=== PATIENT | female | born 1950 | race Caucasian/White ===

== ENCOUNTER 2020-09-15 18:32 | Inpatient (IN) ==
[2020-09-15] MEDS: *HR* OxyCODONE Immed Rel 5 MG TABLET PO PRN (23:22)
[2020-09-15] MEDS: Cholestyramine 4 GM POWD.PACK PO SCH (23:22)
[2020-09-15] MEDS: Apixaban 5 MG TABLET PO SCH (23:23)
[2020-09-16] MEDS: Furosemide 40 MG TABLET PO SCH ×2 (09:04→16:46)
[2020-09-16] MEDS: *HR* SitaGLIPtin 25 MG TABLET PO SCH (09:04)
[2020-09-16] MEDS: Metoprolol XL (24 HR) Succ 50 MG TAB.ER.24H PO SCH (09:04)
[2020-09-16] MEDS: Renal Vitamin 1 CAP CAPSULE PO SCH (09:04)
[2020-09-16] MEDS: Aspirin Enteric Coated 81 MG Tablet PO SCH (09:05)
[2020-09-16] MEDS: Apixaban 5 MG TABLET PO SCH ×2 (09:05→20:26)
[2020-09-16] MEDS: Cholestyramine 4 GM POWD.PACK PO SCH ×2 (09:13→18:12)
[2020-09-16] MEDS: *HR* OxyCODONE Immed Rel 5 MG TABLET PO PRN (11:49)
[2020-09-16] MEDS ORDERED: *HR* Dextrose 50 % in Water (Vial) 50 ML VIAL IVP PRN (12:17)
[2020-09-16] MEDS ORDERED: Dextrose Gel 15 GM/37.5 ML TUBE PO PRN ×2 (12:17)
[2020-09-16] MEDS ORDERED: D5% in Water 1,000 ML IVC PRN (12:17)
[2020-09-16] MEDS: Ondansetron ODT 4 MG TAB.RAPDIS PO PRN (12:49)
[2020-09-16] MEDS: Insulin LISPRO 300 UNITS/3 ML VIAL SUBQ SCH ×2 (16:40→20:18)
[2020-09-16] MEDS: *HR* OxyCODONE/APAP 7.5/325 TABLET PO PRN (16:45)
[2020-09-16] MEDS: Gabapentin 100 MG CAPSULE PO SCH (20:26)
[2020-09-17] MEDS: Cholestyramine 4 GM POWD.PACK PO SCH ×2 (05:58→18:05)
[2020-09-17] MEDS: *HR* OxyCODONE/APAP 7.5/325 TABLET PO PRN ×2 (07:25→21:37)
[2020-09-17] MEDS: Ondansetron ODT 4 MG TAB.RAPDIS PO PRN ×2 (07:26→17:03)
[2020-09-17] MEDS: Insulin LISPRO 300 UNITS/3 ML VIAL SUBQ SCH ×4 (07:45→21:32)
[2020-09-17 08:00] LABS: Hematocrit 26.6 % (35.3-44.9); Hemoglobin 8.3 g/dL (11.5-15.4); Mean Corpuscular HGB Conc 31.2 g/dL (31.6-35.5); Mean Corpuscular Hemoglobin 31.3 pg (28.0-33.3); Mean Corpuscular Volume 100.4 fL (83.0-100.0); Mean Platelet Volume 10.4 fL (9.4-12.4); Platelet Count 229 K/mcL (140-400); Red Blood Count 2.65 M/mcL (3.82-4.97); Red Cell Distribution Width 13.9 % (11.5-14.5); White Blood Count 8.1 K/mcL (4.3-11.1)
[2020-09-17 08:13] LABS: Calcium 8.7 mg/dL (8.6-10.3); Potassium 4.1 mEq/L (3.5-5.1)
[2020-09-17] MEDS: Gabapentin 100 MG CAPSULE PO SCH ×3 (10:18→21:31)
[2020-09-17] MEDS: Renal Vitamin 1 CAP CAPSULE PO SCH (13:43)
[2020-09-17] MEDS: Aspirin Enteric Coated 81 MG Tablet PO SCH (13:44)
[2020-09-17] MEDS: Apixaban 5 MG TABLET PO SCH ×2 (13:45→21:31)
[2020-09-17] MEDS: Furosemide 40 MG TABLET PO SCH ×2 (13:46→16:55)
[2020-09-17] MEDS: Metoprolol XL (24 HR) Succ 50 MG TAB.ER.24H PO SCH (13:51)
[2020-09-17] MEDS: Ergocalciferol (VIT D2) 50,000 UNIT (1.25MG) CAP PO SCH (13:59)
[2020-09-17] MEDS: *HR* SitaGLIPtin 25 MG TABLET PO SCH (14:16)
[2020-09-17] MEDS ORDERED: *HR* Promethazine 25 MG/ML VIAL IM ONE (20:36)
[2020-09-18] MEDS: Cholestyramine 4 GM POWD.PACK PO SCH ×2 (05:52→17:36)
[2020-09-18] MEDS: Metoprolol XL (24 HR) Succ 50 MG TAB.ER.24H PO SCH (10:08)
[2020-09-18] MEDS: Furosemide 40 MG TABLET PO SCH ×2 (10:08→17:35)
[2020-09-18] MEDS: Gabapentin 100 MG CAPSULE PO SCH ×3 (10:08→21:09)
[2020-09-18] MEDS: Renal Vitamin 1 CAP CAPSULE PO SCH (10:08)
[2020-09-18] MEDS: *HR* SitaGLIPtin 25 MG TABLET PO SCH (10:08)
[2020-09-18] MEDS: Insulin LISPRO 300 UNITS/3 ML VIAL SUBQ SCH ×4 (10:09→21:09)
[2020-09-18] MEDS: Aspirin Enteric Coated 81 MG Tablet PO SCH (10:09)
[2020-09-18] MEDS: Apixaban 5 MG TABLET PO SCH ×2 (10:09→21:09)
[2020-09-18] MEDS: *HR* OxyCODONE/APAP 7.5/325 TABLET PO PRN ×2 (10:12→17:35)
[2020-09-18] MEDS: Ondansetron ODT 4 MG TAB.RAPDIS PO PRN (10:12)
[2020-09-19] MEDS: Cholestyramine 4 GM POWD.PACK PO SCH ×2 (05:51→17:57)
[2020-09-19] MEDS: *HR* SitaGLIPtin 25 MG TABLET PO SCH (07:01)
[2020-09-19] MEDS: Renal Vitamin 1 CAP CAPSULE PO SCH (07:01)
[2020-09-19] MEDS: Gabapentin 100 MG CAPSULE PO SCH ×3 (07:01→21:02)
[2020-09-19] MEDS: *HR* OxyCODONE/APAP 7.5/325 TABLET PO PRN (07:01)
[2020-09-19] MEDS: Aspirin Enteric Coated 81 MG Tablet PO SCH (07:01)
[2020-09-19] MEDS: Insulin LISPRO 300 UNITS/3 ML VIAL SUBQ SCH ×4 (07:02→20:49)
[2020-09-19] MEDS: Furosemide 40 MG TABLET PO SCH ×2 (07:02→17:57)
[2020-09-19] MEDS: Apixaban 5 MG TABLET PO SCH ×2 (07:02→21:01)
[2020-09-19] MEDS: Metoprolol XL (24 HR) Succ 50 MG TAB.ER.24H PO SCH (07:02)
[2020-09-20] MEDS: Cholestyramine 4 GM POWD.PACK PO SCH ×2 (06:31→17:52)
[2020-09-20] MEDS: *HR* SitaGLIPtin 25 MG TABLET PO SCH (08:29)
[2020-09-20] MEDS: Metoprolol XL (24 HR) Succ 50 MG TAB.ER.24H PO SCH (08:29)
[2020-09-20] MEDS: Furosemide 40 MG TABLET PO SCH ×2 (08:29→17:52)
[2020-09-20] MEDS: Aspirin Enteric Coated 81 MG Tablet PO SCH (08:29)
[2020-09-20] MEDS: Renal Vitamin 1 CAP CAPSULE PO SCH (08:29)
[2020-09-20] MEDS: Insulin LISPRO 300 UNITS/3 ML VIAL SUBQ SCH ×4 (08:30→20:12)
[2020-09-20] MEDS: Apixaban 5 MG TABLET PO SCH ×2 (08:30→20:21)
[2020-09-20] MEDS: Gabapentin 100 MG CAPSULE PO SCH ×3 (08:30→20:21)
[2020-09-20] MEDS: Ondansetron ODT 4 MG TAB.RAPDIS PO PRN (17:40)
[2020-09-21] MEDS: Cholestyramine 4 GM POWD.PACK PO SCH ×2 (05:37→17:02)
[2020-09-21] MEDS: Insulin LISPRO 300 UNITS/3 ML VIAL SUBQ SCH ×4 (07:48→22:00)
[2020-09-21] MEDS: Apixaban 5 MG TABLET PO SCH ×2 (09:13→21:59)
[2020-09-21] MEDS: Gabapentin 100 MG CAPSULE PO SCH ×3 (09:13→21:58)
[2020-09-21] MEDS: *HR* SitaGLIPtin 25 MG TABLET PO SCH (09:13)
[2020-09-21] MEDS: Furosemide 40 MG TABLET PO SCH ×2 (09:13→17:02)
[2020-09-21] MEDS: Metoprolol XL (24 HR) Succ 50 MG TAB.ER.24H PO SCH (09:13)
[2020-09-21] MEDS: Renal Vitamin 1 CAP CAPSULE PO SCH (09:13)
[2020-09-21] MEDS: Aspirin Enteric Coated 81 MG Tablet PO SCH (09:13)
[2020-09-21] MEDS: *HR* OxyCODONE/APAP 7.5/325 TABLET PO PRN (21:59)
[2020-09-22] MEDS: Cholestyramine 4 GM POWD.PACK PO SCH ×2 (05:56→17:45)
[2020-09-22] MEDS: Insulin LISPRO 300 UNITS/3 ML VIAL SUBQ SCH ×4 (07:36→21:22)
[2020-09-22] MEDS: *HR* SitaGLIPtin 25 MG TABLET PO SCH (07:37)
[2020-09-22] MEDS: Furosemide 40 MG TABLET PO SCH ×2 (07:38→16:19)
[2020-09-22] MEDS: Gabapentin 100 MG CAPSULE PO SCH ×3 (07:38→21:21)
[2020-09-22] MEDS: Renal Vitamin 1 CAP CAPSULE PO SCH (07:38)
[2020-09-22] MEDS: Metoprolol XL (24 HR) Succ 50 MG TAB.ER.24H PO SCH (07:38)
[2020-09-22] MEDS: Apixaban 5 MG TABLET PO SCH ×2 (07:38→21:21)
[2020-09-22] MEDS: Aspirin Enteric Coated 81 MG Tablet PO SCH (07:38)
[2020-09-22] MEDS: Ondansetron ODT 4 MG TAB.RAPDIS PO PRN (15:06)
[2020-09-23] MEDS: Cholestyramine 4 GM POWD.PACK PO SCH ×2 (05:43→16:16)
[2020-09-23 07:01] LABS: Basophils % 0.5 %; Eosinophils # 0.2 K/mcL (0.0-0.6); Eosinophils % 1.7 %; Hematocrit 25.8 % (35.3-44.9); Hemoglobin 8.2 g/dL (11.5-15.4); Immature Granulocytes % 0.8 % (0-4); Lymphocytes # 1.4 K/mcL (0.6-4.6); Lymphocytes % 16.2 %; Mean Corpuscular HGB Conc 31.8 g/dL (31.6-35.5); Mean Corpuscular Hemoglobin 31.2 pg (28.0-33.3); Mean Corpuscular Volume 98.1 fL (83.0-100.0); Mean Platelet Volume 10.1 fL (9.4-12.4); Monocytes # 0.5 K/mcL (0.0-1.3); Monocytes % 5.8 %; Neutrophils # 6.5 K/mcL (1.6-8.9); Platelet Count 322 K/mcL (140-400); Red Blood Count 2.63 M/mcL (3.82-4.97); Red Cell Distribution Width 13.7 % (11.5-14.5); White Blood Count 8.6 K/mcL (4.3-11.1)
[2020-09-23 07:25] LABS: Albumin 2.7 g/dL (3.5-5.7); Albumin/Globulin Ratio 0.8 (1.1-2.2); Bilirubin,Total 0.3 mg/dL (0.3-1.0); Calcium 9.1 mg/dL (8.6-10.3); Globulin 3.3 g/dL (2.4-3.5); Magnesium 1.8 mg/dL (1.6-2.6); Potassium 3.8 mEq/L (3.5-5.1)
[2020-09-23] MEDS: Insulin LISPRO 300 UNITS/3 ML VIAL SUBQ SCH ×4 (10:44→20:31)
[2020-09-23] MEDS: Renal Vitamin 1 CAP CAPSULE PO SCH (10:50)
[2020-09-23] MEDS: *HR* SitaGLIPtin 25 MG TABLET PO SCH (10:50)
[2020-09-23] MEDS: Apixaban 5 MG TABLET PO SCH ×2 (10:50→20:22)
[2020-09-23] MEDS: Furosemide 40 MG TABLET PO SCH ×2 (10:51→16:17)
[2020-09-23] MEDS: Metoprolol XL (24 HR) Succ 50 MG TAB.ER.24H PO SCH (10:51)
[2020-09-23] MEDS: Gabapentin 100 MG CAPSULE PO SCH ×3 (10:51→20:22)
[2020-09-23] MEDS: Aspirin Enteric Coated 81 MG Tablet PO SCH (10:51)
[2020-09-23] MEDS: *HR* OxyCODONE/APAP 7.5/325 TABLET PO PRN (16:16)
[2020-09-24] MEDS: Cholestyramine 4 GM POWD.PACK PO SCH ×2 (05:14→18:26)
[2020-09-24] MEDS: Gabapentin 100 MG CAPSULE PO SCH ×3 (07:26→19:50)
[2020-09-24] MEDS: Furosemide 40 MG TABLET PO SCH ×2 (07:26→16:55)
[2020-09-24] MEDS: *HR* SitaGLIPtin 25 MG TABLET PO SCH (07:26)
[2020-09-24] MEDS: Ondansetron ODT 4 MG TAB.RAPDIS PO PRN (07:26)
[2020-09-24] MEDS: Metoprolol XL (24 HR) Succ 50 MG TAB.ER.24H PO SCH (07:26)
[2020-09-24] MEDS: Renal Vitamin 1 CAP CAPSULE PO SCH (07:26)
[2020-09-24] MEDS: Aspirin Enteric Coated 81 MG Tablet PO SCH (07:27)
[2020-09-24] MEDS: Apixaban 5 MG TABLET PO SCH ×2 (07:27→19:51)
[2020-09-24] MEDS: *HR* OxyCODONE/APAP 7.5/325 TABLET PO PRN ×2 (07:28→22:37)
[2020-09-24] MEDS: Insulin LISPRO 300 UNITS/3 ML VIAL SUBQ SCH ×4 (07:30→22:07)
[2020-09-24] MEDS: Ergocalciferol (VIT D2) 50,000 UNIT (1.25MG) CAP PO SCH (07:32)
[2020-09-25] MEDS: Cholestyramine 4 GM POWD.PACK PO SCH ×2 (05:24→16:02)
[2020-09-25] MEDS: Aspirin Enteric Coated 81 MG Tablet PO SCH (10:21)
[2020-09-25] MEDS: *HR* OxyCODONE/APAP 7.5/325 TABLET PO PRN ×2 (10:21→20:14)
[2020-09-25] MEDS: Ondansetron ODT 4 MG TAB.RAPDIS PO PRN (10:21)
[2020-09-25] MEDS: Insulin LISPRO 300 UNITS/3 ML VIAL SUBQ SCH ×4 (10:23→20:22)
[2020-09-25] MEDS: Gabapentin 100 MG CAPSULE PO SCH ×3 (10:23→20:14)
[2020-09-25] MEDS: Apixaban 5 MG TABLET PO SCH ×2 (10:23→20:15)
[2020-09-25] MEDS: *HR* SitaGLIPtin 25 MG TABLET PO SCH (10:23)
[2020-09-25] MEDS: Furosemide 40 MG TABLET PO SCH ×2 (10:23→15:54)
[2020-09-25] MEDS: Renal Vitamin 1 CAP CAPSULE PO SCH (10:23)
[2020-09-25] MEDS: Metoprolol XL (24 HR) Succ 50 MG TAB.ER.24H PO SCH (10:23)
[2020-09-25 18:05] LABS: Basophils # 0.1 K/mcL (0.0-0.2); Basophils % 0.5 %; Eosinophils # 0.1 K/mcL (0.0-0.6); Eosinophils % 0.9 %; Hematocrit 26.5 % (35.3-44.9); Hemoglobin 8.5 g/dL (11.5-15.4); Immature Granulocytes % 1.7 % (0-4); Lymphocytes # 2.1 K/mcL (0.6-4.6); Lymphocytes % 16.1 %; Mean Corpuscular HGB Conc 32.1 g/dL (31.6-35.5); Mean Corpuscular Hemoglobin 31.5 pg (28.0-33.3); Mean Corpuscular Volume 98.1 fL (83.0-100.0); Mean Platelet Volume 9.6 fL (9.4-12.4); Monocytes # 0.9 K/mcL (0.0-1.3); Monocytes % 6.8 %; Platelet Count 408 K/mcL (140-400); White Blood Count 12.9 K/mcL (4.3-11.1)
[2020-09-25 18:21] LABS: Albumin 2.7 g/dL (3.5-5.7); Albumin/Globulin Ratio 0.8 (1.1-2.2); Bilirubin,Total 0.3 mg/dL (0.3-1.0); Calcium 9.2 mg/dL (8.6-10.3); Globulin 3.2 g/dL (2.4-3.5); Potassium 4.3 mEq/L (3.5-5.1); Total Protein 5.9 g/dL (6.4-8.9)
[2020-09-25 18:29] LABS: Neutrophils # 9.6 K/mcL (1.6-8.9)
[2020-09-25] MEDS ORDERED: Acetaminophen 325 MG TABLET PO PRN (22:44)
[2020-09-26] MEDS: Cholestyramine 4 GM POWD.PACK PO SCH (06:41)
[2020-09-26 06:59] VITALS: BP 130/65
[2020-09-26 07:30] LABS: Basophils # 0.1 K/mcL (0.0-0.2); Basophils % 0.4 %; Eosinophils # 0.2 K/mcL (0.0-0.6); Eosinophils % 1.2 %; Hematocrit 27.4 % (35.3-44.9); Hemoglobin 8.7 g/dL (11.5-15.4); Immature Granulocytes % 1.2 % (0-4); Lymphocytes # 3.1 K/mcL (0.6-4.6); Lymphocytes % 21.2 %; Mean Corpuscular HGB Conc 31.8 g/dL (31.6-35.5); Mean Corpuscular Hemoglobin 31.6 pg (28.0-33.3); Mean Corpuscular Volume 99.6 fL (83.0-100.0); Mean Platelet Volume 9.6 fL (9.4-12.4); Monocytes # 1.1 K/mcL (0.0-1.3); Monocytes % 7.5 %; Platelet Count 384 K/mcL (140-400); Red Blood Count 2.75 M/mcL (3.82-4.97); Red Cell Distribution Width 14.1 % (11.5-14.5); Segmented Neutrophils % 68.5 %; White Blood Count 14.6 K/mcL (4.3-11.1)
[2020-09-26] MEDS ORDERED: Pantoprazole 40 MG VIAL IVP SCH ×2 (08:04→18:00)
[2020-09-26] MEDS: *HR* SitaGLIPtin 25 MG TABLET PO SCH (10:31)
[2020-09-26] MEDS: Gabapentin 100 MG CAPSULE PO SCH ×2 (10:32→16:31)
[2020-09-26] MEDS: Furosemide 40 MG TABLET PO SCH (10:32)
[2020-09-26] MEDS: Metoprolol XL (24 HR) Succ 50 MG TAB.ER.24H PO SCH (10:32)
[2020-09-26] MEDS: Renal Vitamin 1 CAP CAPSULE PO SCH (10:33)
[2020-09-26] MEDS: Insulin LISPRO 300 UNITS/3 ML VIAL SUBQ SCH ×2 (10:33→15:14)
[2020-09-26] MEDS: Aspirin Enteric Coated 81 MG Tablet PO SCH (10:33)
[2020-09-26] MEDS: Apixaban 5 MG TABLET PO SCH (10:33)
[2020-09-26 13:39] LABS: Adenovirus F 40/41 PCR Not detected (Not detect); Astrovirus PCR Not detected (Not detect); C.difficile Toxin A/B Gene PCR Not detected (Not detect); Campylobacter by PCR Not detected (Not detect); Cryptosporidium by PCR Not detected (Not detect); Cyclospora cayetanensis PCR Not detected (Not detect); E. coli O157 by PCR Not detected (Not detect); Entamoeba histolytica PCR Not detected (Not detect); Enteroaggregative E.coli(EAEC) Not detected (Not detect); Enteropathogenic E.coli(EPEC) Not detected (Not detect); Enterotoxigenic E.coli (ETEC) Not detected (Not detect); Giardia lamblia PCR Not detected (Not detect); Norovirus GI/GII PCR Not detected (Not detect); Plesiomonas shigelloides PCR Not detected (Not detect); Rotavirus A PCR Not detected (Not detect); Salmonella PCR Not detected (Not detect); Sapovirus PCR Not detected (Not detect); Shig/EnteroinvasiveE coli EIEC Not detected (Not detect); Shigalike tox-prod E coli STEC Not detected (Not detect); Vibrio PCR Not detected (Not detect); Vibrio cholerae PCR Not detected (Not detect); Yersinia enterocolitica PCR Not detected (Not detect)
[2020-09-26] MEDS: Ondansetron ODT 4 MG TAB.RAPDIS PO PRN (15:59)
[2020-09-26] MEDS: *HR* OxyCODONE/APAP 7.5/325 TABLET PO PRN (16:31)
[2020-09-26 16:34] LABS: Basophils % 0.3 %; Eosinophils # 0.1 K/mcL (0.0-0.6); Eosinophils % 0.6 %; Hematocrit 27.9 % (35.3-44.9); Hemoglobin 8.9 g/dL (11.5-15.4); Lymphocytes # 1.9 K/mcL (0.6-4.6); Lymphocytes % 12.5 %; Mean Corpuscular HGB Conc 31.9 g/dL (31.6-35.5); Mean Corpuscular Hemoglobin 31.4 pg (28.0-33.3); Mean Corpuscular Volume 98.6 fL (83.0-100.0); Mean Platelet Volume 9.8 fL (9.4-12.4); Monocytes # 0.9 K/mcL (0.0-1.3); Monocytes % 5.7 %; Neutrophils # 11.9 K/mcL (1.6-8.9); Platelet Count 402 K/mcL (140-400); Red Blood Count 2.83 M/mcL (3.82-4.97); Segmented Neutrophils % 79.9 %; White Blood Count 14.9 K/mcL (4.3-11.1)
[2020-09-26 16:42] LABS: INR 3.2; Prothrombin Time 35.3 Seconds (9.4-12.1)
[2020-09-26 16:54] LABS: Albumin 2.9 g/dL (3.5-5.7); Albumin/Globulin Ratio 0.8 (1.1-2.2); Bilirubin,Total 0.3 mg/dL (0.3-1.0); Calcium 9.2 mg/dL (8.6-10.3); Globulin 3.7 g/dL (2.4-3.5); Total Protein 6.6 g/dL (6.4-8.9)
== END 2020-09-26 17:58 | disposition short-term general hospital (02) | DRG 559 ==
LOC: INPPIK 20:55
PROVIDERS: ADMIT Family Medicine; ATTEND Family Medicine